=== PATIENT | male | born 1985 | race Caucasian/White ===

== ENCOUNTER 2020-04-15 14:49 | Emergency (ER) | payer OTHER ==
[~2020-04-15] VITALS: Ht 177.8 cm; Wt 88.4 kg
[2020-04-15 14:49] VITALS: BP 113/70
--- NOTE | 2020-04-15 15:30 | PHYS DOC ---
Past History Past Medical History: Other Additional Past Medical Histor: back pain (JANET LANDRY APRN) Past Surgical History: No Surgical History (JANET LANDRY APRN) Alcohol Use: Occasionally (JANET LANDRY APRN) General Adult EDM: Chief Complaint: LOWER EXT PAIN HPI: HPI: Patient is a 34-year-old male who presents with left lower anaya pain for 2 weeks. Patient denies any injury. Patient states he normally runs every day b ut has not ran since the pain started. Patient has been taking ibuprofen for the pain and RICE. Patient reports little relief from ibuprofen. Patient is concerned he has a fracture and wants an x-ray of his leg. Patient rating pain pain 4 out of 10. Worse with movement. (JANET LANDRY APRN) Review of Systems: Review of Systems: Constitutional: Denies fever or chills Eyes: Denies change in visual acuity HENT: Denies nasal congestion or sore throat Respiratory: Denies cough or shortness of breath Cardiovascular: Denies chest pain or edema GI: Denies abdominal pain, nausea, vomiting, bloody stools or diarrhea : Denies dysuria Musculoskeletal: Denies back pain or joint pain. Sharp pain, left anaya Integument: Denies rash Neurologic: Denies headache, focal weakness or sensory changes Endocrine: Denies polyuria or polydipsia Lymphatic: Denies swollen glands Psychiatric: Denies depression or anxiety (JANET LANDRY APRN) Allergies: Allergies: Allergies Coded Allergies Type Severity Reaction Last Updated Verified No Known Drug Allergies 04/15/20 No (JANET LANDRY APRN) Physical Exam: PE: Constitutional: Well developed, well nourished, no acute distress, non-toxic appearance. [] HENT: Normocephalic, atraumatic, bilateral external ears normal, oropharynx moist, no oral exudates, nose normal. [] Eyes: PERRLA, EOMI, conjunctiva normal, no discharge. [] Neck: Normal range of motion, no tenderness, supple, no stridor. [] Cardiovascular:Heart rate regular rhythm, no murmur [] Lungs & Thorax: Bilateral breath sounds clear to auscultation [] Abdomen: Bowel sounds normal, soft, no tenderness, no masses, no pulsatile masses. [] Skin: Warm, dry, no erythema, no rash. [] Back: No tenderness, no CVA tenderness. [] Extremities: no cyanosis, no clubbing, ROM intact, left leg pain with ambulation swelling to left anaya. Strong pedal pulses, cap refill less than 2 seconds. Neurologic: Alert and oriented X 3, normal motor function, normal sensory function, no focal deficits noted. [] Psychologic: Affect normal, judgement normal, mood normal. [] (JANET LANDRY APRN) Current Patient Data: Vital Signs: Vital Signs Date Time Temp Pulse Resp B/P (MAP) Pulse Ox O2 Delivery O2 Flow Rate FiO2 04/15/20 14:49 98.0 57 16 113/70 (84) 95 Room Air (JANET LANDRY APRN) EKG: EKG: [] (JANET LANDRY APRN) Radiology/Procedures: Radiology/Procedures: []Exam: Left tibia and fibula 2 views INDICATION: Anterior anaya pain to left lower leg, severe today TECHNIQUE: Frontal and lateral views of the left tibia and fibula Comparisons: None FINDINGS: Bone mineralization is normal. No acute or healed fractures. Soft tissues are unremarkable. Joint spaces are well-maintained. IMPRESSION: No acute osseous abnormality. Electronically signed by: Tabitha Beach MD (04/15/2020 4:17 PM) COY (JANET ALNDRY APRN) Heart Score: Risk Factors: Risk Factors: DM, Current or recent (<one month) smoker, HTN, HLP, family hist ory of CAD, obesity. Risk Scores: Score 0 - 3: 2.5% MACE over next 6 weeks - Discharge Home Score 4 - 6: 20.3% MACE over next 6 weeks - Admit for Clinical Observation Score 7 - 10: 72.7% MACE over next 6 weeks - Early Invasive Strategies (JANET LANDRY APRN) Course & Med Decision Making: Course & Med Decision Making Pertinent Labs and Imaging studies reviewed. (See chart for details) 34-year-old male presents with left leg pain. Left tib-fib x-ray ordered to rule out a stress fracture. No acute osseous abnormality. DCD to home with RICE instructions. OTC Ibuprofen and Motrin for pain. (JANET LANDRY APRN) Dragon Disclaimer: Dragricky Disclaimer: This electronic medical record was generated, in whole or in part, using a voice recognition dictation system. (JANET LANDRY APRN) Departure Departure: Impression: Primary Impression: Anaya splint of left lower extremity Qualified Codes: S86.892A - Other injury of other muscle(s) and tendon(s) at lower leg level, left leg, initial encounter Disposition: 01 DC HOME SELF CARE/HOMELESS Condition: GOOD Referrals: PCP,UNKNOWN (PCP) Patient Instructions: Anaya Splints, [id number] Additional Instructions: EMERGENCY DEPARTMENT GENERAL DISCHARGE INSTRUCTIONS Thank you for coming to [facility] (ED) today and trusting us with you care. We trust that you had a positivie experience in our Emergency Department. If you wish to speak to the department management, you may call the director at [phone]. YOUR FOLLOW UP INSTRUCTIONS ARE FOLLOWS: 1. Do you have a private Doctor? If you do not have a private doctor, please ask for a resource list of physicians or clinics that may be able to assist you with follow up care. 2. The Emergency Physician has interpreted your x-rays. The X-Ray specialist will also review them. If there is a change in the findings, you will be notified in 48 hours when at all possible. 3. A lab test or culture has been done, your results will be reviewed and you will be notified if you need a change in treatment. ADDITIONAL INSTRUCTIONS AND INFORMATION: 1. Your care today has been supervised by a physician who is specially trained in emergency care. Many problems require more than one evaluation for a complete diagnosis and treatment. We recommend that you schedule your follow up appointment as recommended to ensure complete treatment of you illness or injury. If you are unable to obtain follow up care and continue to have a problem, or if your condition worsens, we recommend that you return to the ED. 2. We are not able to safely determine your condition over the phone nor are we able to give sound medical advice over the phone. For these safety reasons, if you call for medical advice we will ask you to come to the ED for further evaluation. 3. If you have any questions regarding these discharge instructions please call the ED at [phone]. SAFETY INFORMATION: In the interest of safety, wellness, and injury prevention; we encourage you to wear your sealbelt, if you smoke; quite smoking, and we encourage family to use a protective helmet for bicycling and other sporting events that present an increased risk for head injury. IF YOUR SYMPTOMS WORSEN OR NEW SYMPTOMS DEVELOP, OR YOU HAVE CONCERNS ABOUT YOUR CONDITION; OR IF YOUR CONDITION WORSENS WHILE YOU ARE WAITING FOR YOUR FOLLOW UP APPOINTMENT; EITHER CONTACT YOUR PRIMARY CARE DOCTOR, THE PHYSICIAN WHOSE NAME AND NUMBER YOU WERE GIVEN, OR RETURN TO THE ED IMMEDIATELY. Attending Signature Attending Signature I was personally available for consult in the emergency department. I have reviewed the chart and agree with the documentation as recorded by the [facility] including the assessment, treatment plan and disposition. (DONALD DOUGLAS DO) Attending Signature I have participated in the care of this patient and I have reviewed and agree with all pertinent clinical information above including history, exam, and recommendations. (JANET LANDRY APRN) JANET LANDRY APRN Apr 15, 2020 15:30 DONALD DOUGLAS DO Apr 15, 2020 15:53
--- NOTE | 2020-04-15 16:20 | RAD ---
Exam: Left tibia and fibula 2 views INDICATION: Anterior greer pain to left lower leg, severe today TECHNIQUE: Frontal and lateral views of the left tibia and fibula Comparisons: None FINDINGS: Bone mineralization is normal. No acute or healed fractures. Soft tissues are unremarkable. Joint spa yves are well-maintained. IMPRESSION: No acute osseous abnormality. Electronically signed by: Tabitha Beach MD (04/15/2020 4:17 PM) JOCE
== END 2020-04-15 16:47 | disposition home or self-care (01) ==
LOC: ER 14:49
DX: S89.82XA Other specified injuries of left lower leg, initial encounter (principal); X58.XXXA Exposure to other specified factors, initial encounter; Y93.89 Activity, other specified; Y92.89 Other specified places as the place of occurrence of the external cause; Y99.8 Other external cause status
CPT/HCPCS: 73590; 99283